=== PATIENT | female | born 1975 | race Caucasian/White ===

== ENCOUNTER 2017-04-03 17:34 | Emergency (ER) | payer OTHER ==
[2017-04-03 17:58] VITALS: PULSE 90
--- NOTE | 2017-04-03 19:33 | ED ---
URI HPI - General Chief Complaint: Upper Respiratory Infection Stated Complaint: COUGH Time Seen by Provider: 04/03/17 19:06 Source: patient, RN notes reviewed Mode of arrival: ambulatory Limitations: no limitations - History of Present Illness Initial Comments: This is a 41-year-old female who presents to the emergency department with chief complaint of "chest cold." Patient states that on Thursday she developed a productive cough. She states that her cough worsened over the past couple of days. She states she also has a headache and runny nose. She states that she has been using Mucinex which has been helpful. She states that she is worried because she has a history of pneumonia and legionnaire's disease. She denies fevers or chills. She denies abdominal pain, nausea or vomiting, diarrhea or constipation. Patient states that she is not a current smoker. - Related Data Previous Rx's Medication Instructions Recorded Albuterol Inhaler [Ventolin Hfa 1 - 2 puff INHALATION Q6HR PRN #1 04/03/17 Inhaler] inhaler Allergies Allergy/AdvReac Type Severity Reaction Status Date / Time No Known Allergies Allergy Verified 04/03/17 17:50 Review of Systems ROS Statement: Those systems with pertinent positive or pertinent negative responses have been documented in the HPI. ROS Other: All systems not noted in ROS Statement are negative. Past Medical History Past Medical History: CVA/TIA History of Any Multi-Drug Resistant Organisms: None Reported Past Surgical History: No Surgical Hx Reported Additional Past Surgical History / Comment(s): PFO closure. Past Psychological History: No Psychological Hx Reported Smoking Status: Never smoker Past Alcohol Use History: None Reported Past Drug Use History: None Reported General Exam - General Exam Comments Initial Comments: General: Awake and alert, well-developed; in no apparent distress. Does not appear acutely ill. Afebrile. HEENT: Head atraumatic, normocephalic. Pupils are equal, round and reactive to light. Extraocular movements intact. Neck: Supple. Normal ROM. Cardiovascular: Regular rate and rhythm. No murmurs, rubs or gallops. Chest symmetrical. Respiratory: Lungs clear to auscultation bilaterally. No wheezes, rales or rhonchi. Normal respiratory effort with no use of accessory muscles. Musculoskeletal: Normal ROM, no tenderness bilateral upper and lower extremities. Ambulating normally. Skin: [place], warm and dry without rashes or lesions. Neurological: Alert and oriented x3. CN II-XII grossly intact. Speech is fluent and answers are appropriate. No focal neuro deficits. Psychiatric: Normal mood and affect. No overt signs of depression or anxiety noted. Limitations: no limitations Course Vital Signs 04/03/17 17:45 Temperature 97.3 F L Pulse Rate 90 Respiratory 16 Rate Blood Pressure 165/75 O2 Sat by Pulse 100 Oximetry Medical Decision Making - Medical Decision Making This is a 41-year-old female presents to the emergency department with chief complaint of cough. On presentation, patient's vital signs are stable and she is afebrile. Chest x-ray revealed no acute abnormalities. Lungs are clear to auscultation bilaterally. Patient states that she would like prescription for an albuterol. She is in no acute distress and will be discharged home. She is in agreement voices understanding. All questions were answered. - Radiology Data Radiology results: report reviewed Chest x-ray findings: Heart and mediastinum are normal. Lungs are clear. Diaphragm is normal. Bony thorax appears normal. Impression: Normal chest. Disposition Clinical Impression: Upper respiratory infection Disposition: HOME SELF-CARE Condition: Good Instructions: Upper Respiratory Infection (ED) Additional Instructions: Please follow up with primary care provider within 1-2 days. Return to emergency department if symptoms should worsen or any concerns arise. Prescriptions: Albuterol Inhaler [Ventolin Hfa Inhaler] 1 - 2 puff INHALATION Q6HR PRN #1 inhaler PRN Reason: Wheezing Referrals: Cirilo Griffin MD [Primary Care Provider] - 1-2 days Time of Disposition: 20:31
--- NOTE | 2017-04-03 20:05 | XR ---
EXAMINATION TYPE: XR chest 2V DATE OF EXAM: 04/03/2017 COMPARISON: NONE HISTORY: Cough TECHNIQUE: Frontal and lateral views of the chest are obtained. FINDINGS: Heart and mediastinum are normal. Lungs are clear. Diaphragm is normal. Bony thorax appear s normal. IMPRESSION: Normal chest
[2017-04-03 20:52] VITALS: BP 154/82; RESP 18; TEMP 97.8
== END 2017-04-03 20:51 | disposition home or self-care (01) ==
LOC: EC 17:34
DX: J06.9 Acute upper respiratory infection, unspecified (principal)
CPT/HCPCS: 71046; 99283

== ENCOUNTER → 2018-04-05 | Outpatient (CLI) | payer MEDICAID ==
--- NOTE | 2018-04-05 16:05 | XR ---
EXAMINATION TYPE: XR Hip Limited RT DATE OF EXAM: 04/05/2018 COMPARISON: NONE HISTORY: Chronic hip pain TECHNIQUE: 2 views submitted FINDINGS: There is no evidence of erosive change or acute fracture. Slightly nonspherical morphology of the femoral head can occasionally be seen with femoral acetabular impingement. IMPRESSION: 1. No evidence of acute fracture or dislocation. 2. Recommend MRI to assess for femoral acetabular impingement.
== END | disposition home or self-care (01) ==
LOC: RADXRMAIN 14:53
PROVIDERS: ATTEND Internal Medicine Geriatric Medicine
DX: M25.551 Pain in right hip (principal)
CPT/HCPCS: 73501

== ENCOUNTER → 2018-05-04 | Outpatient (CLI) | payer MEDICAID ==
--- NOTE | 2018-05-05 06:05 | MR ---
EXAMINATION TYPE: MR hip RT wo con DATE OF EXAM: 05/04/2018 COMPARISON: Right hip x-ray April 05, 2018. HISTORY: Right hip pain Standard multiplanar, multisequence MRI departmental protocol Multiplanar, multisequence images of the pelvis focus in the right hip were acquired. FINDINGS: Osseous structures of the pelvis including bilateral hips show bone marrow signal intensity to be maintained with slight heterogeneity. No suspicious edema is seen. No serpiginous low T1 signa l is noted. Femoral head shapes are symmetric and felt within normal limits. No significant spurring or joint effusions are identified bilaterally. No suspicious increased fluid signal seen at level of greater or lesser trochanters bilaterally. Muscle bulk bilateral thighs is symmetric and felt within normal limits. No suspicious groin adenopathy is seen. No suspicious fat or bowel containing groin he rnias are noted. Labrum appears grossly intact given limitation of nonarthrogram study. There is no suspicious bowel dilatation. Bladder is poorly distended otherwise unremarkable. Antevert ed uterus is present. No pelvic fluid collection is seen. IMPRESSION: No suspicious finding is seen to account for patient's symptoms of right hip pain.
== END ==
LOC: RADMRIMAIN 15:06
PROVIDERS: ATTEND Nurse Practitioner Family
DX: M25.551 Pain in right hip (principal)

== ENCOUNTER 2019-11-21 20:31 | Emergency (ER) | payer MEDICAID, OTHER ==
[2019-11-21 20:36] VITALS: BP 164/96; PULSE 95; RESP 18; TEMP 97.7
--- NOTE | 2019-11-21 21:08 | XR ---
EXAMINATION TYPE: XR ankle complete LT DATE OF EXAM: 11/21/2019 COMPARISON: NONE HISTORY: Ankle pain TECHNIQUE: 3 views FINDINGS: I see no fracture nor dislocation. There is plantar calcaneal spurring. Ankle mortise is an atomic. IMPRESSION: Calcaneal spurring. No fracture seen.
--- NOTE | 2019-11-21 21:10 | XR ---
EXAMINATION TYPE: XR foot complete LT DATE OF EXAM: 11/21/2019 COMPARISON: NONE HISTORY: Pain TECHNIQUE: 3 views FINDINGS: Metatarsals are intact. I see no fracture nor dislocation. Joint spaces are normal. There i s plantar and Achilles calcaneal spurring. IMPRESSION: Calcaneal spurring. No fracture seen.
--- NOTE | 2019-11-21 21:30 | ED ---
General Adult HPI - General Chief complaint: Extremity Injury, Lower Stated complaint: L Ankle Injury Time Seen by Provider: 11/21/19 20:49 Source: patient, RN notes reviewed, old records reviewed Mode of arrival: wheelchair Limitations: no limitations - History of Present Illness Initial comments: 44-year-old female patient presents to ED for evaluation of left ankle injury. Patient reports that about 2 days ago she was pushing a trailer at her feet planted when she felt a loud pop in her left medial ankle medial foot region. Patient has been having pain since and difficulty ambulation. Denies falling to ground. Denies any other complaints. Patient does reportedly have a tendon injury to her ankle number of years back that did not require surgery. Systemic: Pt denies fatigue, fever/chills, rash. Pt denies weakness, night sweats, weight loss. Neuro: Pt denies headache, visual disturbances, syncope or pre-syncope. HEENT: Pt denies ocular discharge or irritation, otalgia, rhinorrhea, pharyngitis or notable lymphadenopathy. Cardiopulmonary: Pt denies chest pain, SOB, heart palpitations, dyspnea on exertion. Abdominal/GI: Pt denies abdominal pain, n/v/d. : Pt denies dysuria, burning w/ urination, frequency/urgency. Denies new onset urinary or bowel incontinence. Neuro: Pt denies new onset weakness, paresthesias. - Related Data Previous Rx's Medication Instructions Recorded Albuterol Inhaler ([facility]) [Ventolin 1 - 2 puff INHALATION Q6HR PRN #1 04/03/17 Hfa Inhaler ([facility])] inhaler Allergies Allergy/AdvReac Type Severity Reaction Status Date / Time No Known Allergies Allergy Verified 11/21/19 20:36 Review of Systems ROS Statement: Those systems with pertinent positive or pertinent negative responses have been documented in the HPI. ROS Other: All systems not noted in ROS Statement are negative. Past Medical History Past Medical History: No Reported History History of Any Multi-Drug Resistant Organisms: None Reported Past Surgical History: Orthopedic Surgery Additional Past Surgical History / Comment(s): PFO closure. Past Psychological History: No Psychological Hx Reported Smoking Status: Never smoker Past Alcohol Use History: Occasional Past Drug Use History: None Reported General Exam - General Exam Comments Initial Comments: Constitutional: NAD, AOX3, Pt has pleasant affect. HEENT: NC/AT, trachea midline, neck supple, no lymphadenopathy. External ears appear normal, without discharge. Mucous membranes moist. EOM intact. There is no scleral icterus. No pallor noted. Cardiopulmonary: RRR, no murmurs, rubs or gallops, no JVD noted. Lungs CTAB in anterior and posterior faith. No peripheral edema. Abdominal exam: Abdomen soft and non-distended. Neuro: CN II-XII grossly intact. No nuchal rigidity. MSK: No posterior calf tenderness bilaterally, homans sign negative bilaterally. Posterior tibialis and radial pulse +2 bilaterally. Sensation intact in upper and lower extremities. Plantar dorsi flexion of left ankle is intact tib-fib tenderness. There is tenderness to medial malleolus medial foot region. Neurovascularly intact. Dorsalis pedis administered tibialis pulses +2. Extremities warm and well perfused. Patient placed in a posterior ankle splint. Neurovascular intact before and after splint placement. Limitations: no limitations Course Vital Signs 11/21/19 20:32 Temperature 97.7 F Pulse Rate 95 Respiratory 18 Rate Blood Pressure 164/96 O2 Sat by Pulse 99 Oximetry Procedures - Orthopedic Splinting/Casting Injury #1 Side: left Upper Extremity Immobilizer: posterior splint Medical Decision Making - Medical Decision Making 44-year-old female patient presented to ED for evaluation left ankle injury. For loud pop. Tenderness to medial malleolus medial foot region. Plain films negative. Patient placed in a posterior ankle splint. Will be nonweightbearing and discharge the patient with orthopedic follow-up and return precautions. Case discussed with Dr. Philip. Disposition Clinical Impression: Ankle sprain Disposition: HOME SELF-CARE Condition: Stable Instructions (If sedation given, give patient instructions): Ankle Sprain (ED) Additional Instructions: continue to wear splint on ankle. Use crutches and not bear weight on left lower extremity. Follow up with PCP and orthopedic consult tomorrow. Return to ED with any worsening symptoms. Is patient prescribed a controlled substance at d/c from ED?: No Referrals: Cirilo Griffin MD [Primary Care Provider] - 1-2 days Dayday Estrada DO [Doctor of Osteopathic Medicine] - 1-2 days
== END 2019-11-21 21:55 | disposition home or self-care (01) ==
LOC: EC 20:31
DX: S93.402A Sprain of unspecified ligament of left ankle, initial encounter (principal); X50.0XXA Overexertion from strenuous movement or load, initial encounter
CPT/HCPCS: 29515; 99284

== ENCOUNTER → 2022-05-28 | Outpatient (CLI) | payer BC, OTHER ==
--- NOTE | 2022-05-29 10:54 | MM ---
Reason for Exam: Screening (asymptomatic). Baseline mammogram. Patient History: Menarche at age 8. First Full-Term at age 20. Currently using Hormonal Contraceptives, starting at age 44. Risk Values: Sravani 5 year model risk: 0.9%. NCI Lifetime model risk: 9.2%. Prior Study Comparison: Patient's first Mammogram. No prior studies available for comparison. Tissue Density: There are scattered fibroglandular densities. Findings: Analyzed By CAD. There is no suspicious group of microcalcifications or new suspicious mass in either breast. Overall Assessment: Negative, BI-RAD 1 Management: Screening Mammogram of both breasts in 1 year. A clinical breast exam by your physician is recommended on an annual basis and results should be correlated with mammographic findings. [facility] will attempt to contact patient to return for supplemental views and ultrasound if indicated. Electronically signed and approved by: Jimbo Reagan DO
== END | disposition home or self-care (01) ==
LOC: RADMAMWWP 10:49
PROVIDERS: ATTEND Internal Medicine Geriatric Medicine
DX: Z12.31 Encounter for screening mammogram for malignant neoplasm of breast (principal)
CPT/HCPCS: 77067

== ENCOUNTER → 2022-06-03 | Outpatient (CLI) | payer BC, OTHER ==
--- NOTE | 2022-06-03 14:21 | MM ---
Reason for Exam: Additional evaluation requested from abnormal screening. Last screening mammogram was performed less than 1 month ago. Patient History: Menarche at age 8. First Full-Term at age 20. Premenopausal. Patient has history of breast feeding. Currently using Hormonal Contraceptives, starting at age 44. Risk Values: Sravani 5 year model risk: 0.9%. NCI Lifetime model risk: 9.2%. Prior Study Comparison: 05/28/2022 Bilateral MG screening mammo w CAD, [facility]. Tissue Density: Left: The breast tissue is heterogeneously dense. This may lower the sensitivity of mammography. Findings: Analyzed By CAD. Small punctate calcifications felt to reside within a tortuous vessel. No suspicious constipation seen. Overall Assessment: Benign, BI-RAD 2 Management: Screening Mammogram of both breasts in 1 year. A clinical breast exam by your physician is recommended on an annual basis and results should be correlated with mammographic findings. This exam should not preclude additional follow-up of suspicious palpable abnormalities. Results were given to the patient verbally at the time of exam. Electronically signed and approved by: Rcik Trivedi M.D. Radiologis
== END | disposition home or self-care (01) ==
LOC: RADMAMWWP 13:40
PROVIDERS: ATTEND Internal Medicine Geriatric Medicine
DX: R92.8 Other abnormal and inconclusive findings on diagnostic imaging of breast (principal)
CPT/HCPCS: 77061; 77065